=== PATIENT | female | born 1995 | race African-American/Black ===

== ENCOUNTER 2016-06-15 23:37 | Emergency (ER) | payer SELFPAY ==
[2016-06-15 23:44] VITALS: BP 123/72
--- NOTE | 2016-06-15 23:57 | PHYS DOC ---
Past Medical History Past Medical History: No Pertinent History Past Surgical History: Other Additional Past Surgical Histo: WRIST Alcohol Use: None Drug Use: None Adult General Chief Complaint Chief Complaint: KNEE INJURY HPI HPI Patient is a 21 year old female who presents with mild left anterior knee pain that began today, patient states she was chasing after her children and fell down on the knee. Patient denies any loss of consciousness. Review of Systems Review of Systems Constitutional: Denies fever or chills [] Eyes: Denies change in visual acuity, redness, or eye pain [] HENT: Denies nasal congestion or sore throat [] Musculoskeletal: Left anterior knee pain Integument: Denies rash or skin lesions [] Neurologic: Denies headache, focal weakness or sensory changes [] Endocrine: Denies polyuria or polydipsia [] Allergies Allergies Allergies Coded Allergies Type Severity Reaction Last Updated Verified No Known Drug Allergies 06/15/16 No Physical Exam Physical Exam Constitutional: Well developed, well nourished, no acute distress, non-toxic appearance. [] HENT: Normocephalic, atraumatic, bilateral external ears normal, oropharynx moist, no oral exudates, nose normal. [] Skin: Warm, dry, no erythema, no rash. [] Back: No tenderness, no CVA tenderness. [] Extremities: Left knee with anterior aspect with small amount of mild tissue swelling. Tenderness on palpation of the anterior aspect of the left knee. Slightly Limited range of motion to the left knee due to pain. Negative Kirsty sign and negative William's sign. +2 left pedal pulse. Cap refill less than 2 seconds the left lower extremity. Sensation intact to the left lower extremity. Neurologic: Alert and oriented X 3, normal motor function, normal sensory function, no focal deficits noted. [] Psychologic: Affect normal, judgement normal, mood normal. [] Current Patient Data Vital Signs Vital Signs Date Time Temp Pulse Resp B/P Pulse Ox O2 Delivery O2 Flow Rate FiO2 06/15/16 23:44 98.5 70 16 98 Room Air 98.5 EKG EKG [] Radiology/Procedures Radiology/Procedures [] Course & Med Decision Making Course & Med Decision Making Pertinent Labs and Imaging studies reviewed. (See chart for details) Patient is in the ED with left knee pain after falling on it. Left knee x-rays interpreted by Dr. Kirkland and negative for any acute findings. Patient has left knee sprain. Immobilizer applied to the left knee. The ED RN, neurovascular exam done by me is normal, cap refill less than 2 seconds. Discharged with instructions to follow-up with orthopedic doctor. Ice elevation encouraged. Ultrum for pain. Dragon Disclaimer Dragon Disclaimer This electronic medical record was generated, in whole or in part, using a voice recognition dictation system. Departure Departure Impression: Primary Impression: Left knee sprain Additional Impression: Fall from standing Disposition: HOME, SELF-CARE Condition: STABLE Referrals: AG DOZIER II, MD Follow-up with the provided orthopedic doctor in one week if pain continues Patient Instructions: Fall Prevention and Home Safety, [id number], Knee Sprain Additional Instructions: You were seen for left knee sprain. Ice and elevate the extremity. Take the prescribed medicine as needed. Follow-up with orthopedic doctor provided in one week if pain continues. Scripts Tramadol Hcl (Ultram)50 Mg Tablet1 Tab PO Q6HRS #30 TAB Prov:DARY BRYAN APRN 06/16/16 Problem Qualifiers Primary Impression: Left knee sprain Encounter type: initial encounter Involved ligament of knee: unspecified ligament Qualified Code: S83.92XA - Sprain of unspecified site of left knee, initial encounter Additional Impression: Fall from standing Encounter type: initial encounter Qualified Code: W19.XXXA - Unspecified fall, initial encounter DARY BRYAN APRN Jun 15, 2016 23:57
[2016-06-16] MEDS ORDERED: TRAM-29 PO (00:12)
--- NOTE | 2016-06-16 08:02 | RAD ---
4 view left knee radiographs 06/15/2016 Clinical history: Left knee pain. AP, lateral, oblique and sunrise digital radiographs of the left knee were obtained. No fracture or dislocation left knee is seen. No significant degenerative changes are noted. Impression: No fracture or dislocation of the left knee is seen.
== END 2016-06-16 00:28 | disposition home or self-care (01) ==
LOC: ER 23:37
DX: S83.92XA Sprain of unspecified site of left knee, initial encounter (principal); W18.39XA Other fall on same level, initial encounter; Y93.89 Activity, other specified; Y92.89 Other specified places as the place of occurrence of the external cause; Y99.8 Other external cause status
CPT/HCPCS: 29505; 73564; 99284-25

== ENCOUNTER 2017-02-12 13:30 | Emergency (ER) | payer SELFPAY ==
[~2017-02-12 13:30] MED LIST: TRAM-48 PO
--- NOTE | 2017-02-12 13:54 | PHYS DOC ---
Past Medical History Past Medical History: No Pertinent History Past Surgical History: Other Additional Past Surgical Histo: L WRIST Alcohol Use: None Drug Use: None Adult General Chief Complaint Chief Complaint: VAGINAL BLEEDING HPI HPI Patient is a 21 year old female who presents with vaginal bleeding. She states her period ended on the ninth of this month and she still having bleeding. She states she feels lightheaded when she stands up and has to stop for a few seconds and is able to recover. He denies any fevers chills nausea vomiting or chest discomfort. Denies any shortness of breath. She states she's never had vaginal bleeding like this before. She states she's had 3 pregnancies before without any couple occasions. She denies any vaginal discharge or history of STDs. Review of Systems Review of Systems Constitutional: Denies fever or chills [] Eyes: Denies change in visual acuity, redness, or eye pain [] HENT: Denies nasal congestion or sore throat [] Respiratory: Denies cough or shortness of breath [] Cardiovascular: No additional information not addressed in HPI [] GI: Denies abdominal pain, nausea, vomiting, bloody stools or diarrhea [] : Denies dysuria or hematuria [] Musculoskeletal: Denies back pain or joint pain [] Integument: Denies rash or skin lesions [] Neurologic: Denies headache, focal weakness or sensory changes [] Endocrine: Denies polyuria or polydipsia [] All other systems were reviewed and found to be within normal limits, except as documented in this note. Current Medications Current Medications Current Medications Medications (Trade) Dose Ordered Sig/[facility] Start Time Stop Time Status Last Admin Dose Admin Medroxyprogesterone Acetate (Provera) 5 mg 1X ONCE 02/12/17 17:00 02/12/17 17:01 Allergies Allergies Allergies Coded Allergies Type Severity Reaction Last Updated Verified No Known Drug Allergies 06/15/16 No Physical Exam Physical Exam Constitutional: Well developed, well nourished, no acute distress, non-toxic appearance. [] HENT: Normocephalic, atraumatic, bilateral external ears normal, oropharynx moist, no oral exudates, nose normal. [] Eyes: PERRLA, EOMI, conjunctiva normal, no discharge. [] Neck: Normal range of motion, no tenderness, supple, no stridor. [] Cardiovascular:Heart rate regular rhythm, no murmur [] Lungs & Thorax: Bilateral breath sounds clear to auscultation [] Abdomen: Bowel sounds normal, soft, no tenderness, no masses, no pulsatile masses. [] Skin: Warm, dry, no erythema, no rash. [] Back: No tenderness, no CVA tenderness. [] Extremities: No tenderness, no cyanosis, no clubbing, ROM intact, no edema. [] Neurologic: Alert and oriented X 3, normal motor function, normal sensory function, no focal deficits noted. [] Psychologic: Affect normal, judgement normal, mood normal. [] Current Patient Data Vital Signs Vital Signs Date Time Temp Pulse Resp B/P (MAP) Pulse Ox O2 Delivery O2 Flow Rate FiO2 02/12/17 14:42 80 110/68 (82) 99 Room Air 02/12/17 13:40 98.8 16 98.8 Lab Values Laboratory Tests Test 02/12/17 13:39 02/12/17 13:50 02/12/17 15:15 POC Urine HCG, Qualitative Hcg negative (Negative) Urine Collection Type Unknown Urine Color Yellow Urine Clarity Clear Urine pH 6.5 Urine Specific [place] 1.015 Urine Protein Negative mg/dL (NEG-TRACE) Urine Glucose (UA) Negative mg/dL (NEG) Urine Ketones (Stick) Negative mg/dL (NEG) Urine Blood Large (NEG) Urine Nitrite Negative (NEG) Urine Bilirubin Negative (NEG) Urine Urobilinogen Dipstick 0.2 mg/dL (0.2 mg/dL) Urine Leukocyte Esterase Moderate (NEG) Urine RBC >40 /HPF (0-2) Urine WBC 5-10 /HPF (0-4) Urine Squamous Epithelial Cells Mod /LPF Urine Bacteria Many /HPF (0-FEW) Urine Mucus Mod /LPF Urine Trichomonas Present White Blood Count 3.0 x10^3/uL (4.0-11.0) L Red Blood Count 4.54 x10^6/uL (3.50-5.40) Hemoglobin 14.0 g/dL (12.0-15.5) Hematocrit 41.7 % (36.0-47.0) Mean Corpuscular Volume 92 fL (79-100) Mean Corpuscular Hemoglobin 31 pg (25-35) Mean Corpuscular Hemoglobin Concent 34 g/dL (31-37) Red Cell Distribution Width 11.8 % (11.5-14.5) Platelet Count 201 x10^3/uL (140-400) Neutrophils (%) (Auto) 39 % (31-73) Lymphocytes (%) (Auto) 38 % (24-48) Monocytes (%) (Auto) 20 % (0-9) H Eosinophils (%) (Auto) 3 % (0-3) Basophils (%) (Auto) 1 % (0-3) Neutrophils # (Auto) 1.2 x10^3uL (1.8-7.7) L Lymphocytes # (Auto) 1.2 x10^3/uL (1.0-4.8) Monocytes # (Auto) 0.6 x10^3/uL (0.0-1.1) Eosinophils # (Auto) 0.1 x10^3/uL (0.0-0.7) Basophils # (Auto) 0.0 x10^3/uL (0.0-0.2) Segmented Neutrophils % 33 % (35-66) L Lymphocytes % 47 % (24-48) Atypical Lymphocytes % (Manual) 2 % (0-0) H Monocytes % 14 % (0-10) H Eosinophils % 3 % (0-5) Basophils % 1 % (0-3) Platelet Estimate Adequate (ADEQUATE) Prothrombin Time 13.5 SEC (11.7-14.0) Prothrombin Time INR 1.1 (0.8-1.1) Sodium Level 138 mmol/L (136-145) Potassium Level 4.0 mmol/L (3.5-5.1) Chloride Level 105 mmol/L (98-107) Carbon Dioxide Level 27 mmol/L (21-32) Anion Gap 6 (6-14) Blood Urea Nitrogen 7 mg/dL (7-20) Creatinine 0.7 mg/dL (0.6-1.0) Estimated GFR (Cockcroft-Gault) 125.5 BUN/Creatinine Ratio 10 (6-20) Glucose Level 92 mg/dL (70-99) Calcium Level 8.4 mg/dL (8.5-10.1) L Total Bilirubin 0.3 mg/dL (0.2-1.0) Aspartate Amino Transferase (AST) 19 U/L (15-37) Alanine Aminotransferase (ALT) 18 U/L (14-59) Alkaline Phosphatase 82 U/L (46-116) Total Protein 8.2 g/dL (6.4-8.2) Albumin 3.9 g/dL (3.4-5.0) Albumin/Globulin Ratio 0.9 (1.0-1.7) L Laboratory Tests 02/12/17 15:15 Laboratory Tests 02/12/17 15:15 EKG EKG [] Radiology/Procedures Radiology/Procedures [] Impressions: Dysfunctional uterine bleeding Course & Med Decision Making Course & Med Decision Making Pertinent Labs and Imaging studies reviewed. (See chart for details) Labs do not show any acute abnormality's. Vitals are stable. Dr. Olson meds Provera 5 mg twice a day for 10 days. Return precautions given. Dragon Disclaimer Dragon Disclaimer This electronic medical record was generated, in whole or in part, using a voice recognition dictation system. Departure Departure Impression: Primary Impression: Vaginal bleeding Disposition: HOME, SELF-CARE Condition: STABLE Referrals: NO PCP (PCP) ABI OLSON Jr, MD Patient Instructions: Uterine Bleeding, Dysfunctional, [id number] Additional Instructions: Your labs do not show any acute abnormalities in addition your vitals are stable. I spoke with Dr. Olson Ms. you starting 5 mg of Provera twice a day for the next 10 days. I've written your prescription for this. Please call his office and follow-up with him. Return back to ER if you have lightheadedness dizziness chest pain or other concerns. Scripts Medroxyprogesterone Acetate (PROVERA) 5 Mg Tablet 1 TAB PO BID, #20 TAB 11 Refills Prov: COLTON VILLA MD 02/12/17 COLTON VILLA MD Feb 12, 2017 13:54
[2017-02-12 14:05] LABS: BILIRUBIN,URINE NEGATIVE (NEG); GLUCOSE,URINE NEGATIVE (NEG); NITRITE,URINE NEGATIVE (NEG); PH,URINE 6.5; PROTEIN,URINE NEGATIVE (NEG-TRACE); UROBILINOGEN,URINE 0.2 mg/dL (0.2 mg/dL)
[2017-02-12 14:19] LABS: BACTERIA,URINE MANY /HPF (0-FEW); RBC,URINE >40 /HPF (0-2); SQUAMOUS EPITHELIAL CELL,UR MOD /LPF; TRICHOMONAS,URINE PRESENT
[2017-02-12 15:22] LABS: BASO % 1 % (0-3); EOS % 3 % (0-3); HEMATOCRIT 41.7 % (36.0-47.0); LYMPH # 1.2 x10^3/uL (1.0-4.8); LYMPH % 38 % (24-48); MEAN CORPUSCULAR HEMOGLOBIN 31 pg (25-35); MEAN CORPUSCULAR HGB CONC 34 g/dL (31-37); MEAN CORPUSCULAR VOLUME 92 fL (79-100); MONO % 20 % (0-9); NEUT % 39 % (31-73); PLATELET COUNT 201 x10^3/uL (140-400); RED BLOOD COUNT 4.54 x10^6/uL (3.50-5.40); RED CELL DISTRIBUTION WIDTH 11.8 % (11.5-14.5)
[2017-02-12 15:30] LABS: INR 1.1 (0.8-1.1); PROTHROMBIN TIME PATIENT 13.5 SEC (11.7-14.0)
[2017-02-12 15:48] LABS: CALCIUM 8.4 mg/dL (8.5-10.1); CREATININE 0.7 mg/dL (0.6-1.0); GFR 125.5
[2017-02-12 15:59] LABS: % BASOS 1 % (0-3); % EOS 3 % (0-5); PLT ESTIMATE ADEQUATE (ADEQUATE)
[2017-02-12 16:02] LABS: ALBUMIN 3.9 g/dL (3.4-5.0); ALBUMIN/GLOBULIN RATIO 0.9 (1.0-1.7); TOTAL BILIRUBIN 0.3 mg/dL (0.2-1.0); TOTAL PROTEIN 8.2 g/dL (6.4-8.2)
[2017-02-12] MEDS ORDERED: MEDR5TAB PO (16:40)
[2017-02-12 16:42] VITALS: BP 105/63
== END 2017-02-12 16:53 | disposition home or self-care (01) ==
LOC: ER 13:30
DX: N93.9 Abnormal uterine and vaginal bleeding, unspecified (principal)
CPT/HCPCS: 36415; 80053; 81001; 81025; 85007; 85025; 85610; 87086; 99284